=== PATIENT | female | born 1990 | race Caucasian/White ===

== ENCOUNTER 2019-06-02 18:40 | Emergency (ER) | payer OTHER ==
[2019-06-02 19:23] VITALS: TEMP 98.3; BMI 20.9
[2019-06-02 20:48] LABS: BASO % 0.4 % (0-2.0); EOS % 2.7 % (0-4.5); HEMATOCRIT 42.4 % (32.4-45.2); HEMOGLOBIN 14.1 GM/dL (10.7-15.3); LYMPH % 54.9 % (8-40); MCH 29.6 pg (25.7-33.7); MCHC 33.3 g/dl (32.0-36.0); MEAN CELL VOLUME 88.8 fl (80-96); MEAN PLT VOLUME 8.7 fl (7.5-11.1); MONO % 8.3 % (3.8-10.2); NEUT % 33.7 % (42.8-82.8); PLATELET COUNT 299 K/MM3 (134-434); RBC 4.78 M/mm3 (3.60-5.2); RDW 12.9 % (11.6-15.6); WHITE BLOOD COUNT 4.1 K/mm3 (4.0-10.0)
[2019-06-02 21:09] LABS: ALBUMIN 3.7 g/dl (3.4-5.0); BILIRUBIN,TOTAL 0.6 mg/dL (0.2-1); BLOOD UREA NITROGEN 9.8 mg/dL (7-18); CALCIUM 8.5 mg/dL (8.5-10.1); CREATININE 0.8 mg/dL (0.55-1.3); POTASSIUM 4.2 mmol/L (3.5-5.1); TOT PROT 7.8 g/dl (6.4-8.2)
--- NOTE | 2019-06-02 23:59 | PDOC ---
Documentation entered by Leesa Wesley SCRIBE, acting as scribe for Patricia Cat MD. Patricia Cat MD: This documentation has been prepared by the Lupillo varma Nirvannie, SCRIBE, under my direction and personally reviewed by me in its entirety. I confirm that the documentation accurately reflects all work, treatment, procedures, and medical decision making performed by me. History of Present Illness - General Chief Complaint: Shortness of Breath Stated Complaint: SOB History Source: Patient Exam Limitations: No Limitations - History of Present Illness Initial Comments: 06/02/19 22:07 The patient is a 28 year old female, with no significant past medical history, who presents to the emergency department with 2 days of generalized weakness, cough, chest pain, and shortness of breath. As per patient, her symptoms initially onset yesterday evening and persisted throughout the day, prompting her arrival to the ED. 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 Per patient her itinerary is as followed: She notes traveling last week from [facility] to [facility] and returned home. On Monday (05/26) she traveled from [facility] to [facility] where she was stationed for 2 days. She then traveled on (05/29) to [place] and back to [place] yesterday (05/31). She denies recent fevers, chills, headache or dizziness. She denies recent nausea, vomit, diarrhea or constipation. She denies recent dysuria, frequency, urgency or hematuria. Allergies: NKDA Primary Care Physician: Dr. Judd Past History - Past Medical History Allergies/Adverse Reactions: Allergies Allergy/AdvReac Type Severity Reaction Status Date / Time No Known Allergies Allergy Verified 06/02/19 19:22 Home Medications: Ambulatory Orders Unobtainable 06/29/15 - Immunization History Td Vaccination: Yes Immunization Up to Date: Yes - Psycho Social/Smoking Cessation Hx Smoking Status: No Smoking History: Never smoked Have you smoked in the past 12 months: No Number of Cigarettes Smoked Daily: 0 Hx Alcohol Use: No Drug/Substance Use Hx: No Review of Systems - Review of Systems Able to Perform ROS?: Yes Comments:: 03/08/20 22:07 CONSTITUTIONAL: Present: Generalized weakness. Absent: fever, no chills EYES: Absent: visual changes ENT: Absent: ear pain, no sore throat CARDIOVASCULAR: Present: Chest pain. Absent: no palpitations RESPIRATORY: Present: cough, SOB GI: Absent: abdominal pain, no nausea, no vomiting, no constipation, no diarrhea GENITOURINARY: Absent: dysuria, no frequency, no hematuria MUSKULOSKELETAL: Absent: back pain, no arthralgia, no myalgia SKIN: Absent: rash NEURO: Absent: headache All Other Systems: Reviewed and Negative *Physical Exam - Physical Exam 06/02/19 22:07 GENERAL: Awake and alert. Well developed, well nourished 28 year old. No acute distress. HEENT: Normocephalic, atraumatic. PERRLA, EOMI. No conjunctival pallor. Sclera are non- icteric. Moist mucous membranes. Oropharynx is clear. NECK: Supple. Full ROM. No JVD. Carotid pulses 2+ and symmetric, without bruits. No thyromegaly. No lymphadenopathy. CARDIOVASCULAR: Regular rate and rhythm. No murmurs, rubs, or gallops. Distal pulses are 2+ and symmetric. PULMONARY: No evidence of respiratory distress. Lungs clear to auscultation bilaterally. No wheezing, rales or rhonchi. ABDOMINAL: Soft. Non-tender. Non-distended. No rebound or guarding. No organomegaly. Normoactive bowel sounds. MUSCULOSKELETAL Normal range of motion at all joints. No bony deformities or tenderness. No CVA tenderness. EXTREMITIES: No cyanosis. No clubbing. No edema. No calf tenderness. SKIN: Warm and dry. Normal capillary refill. No rashes. No jaundice. NEUROLOGICAL: Alert, awake, appropriate. Cranial nerves 2-12 intact. No deficits to light touch and temperature in face, upper extremities and lower extremities. No motor deficits in the in face, upper extremities and lower extremities. Normal speech. PSYCHIATRIC: Cooperative. Good eye contact. Appropriate mood and affect. ED Treatment Course - LABORATORY CBC & Chemistry Diagram: 06/02/19 20:00 06/02/19 20:00 Medical Decision Making - Medical Decision Making 06/02/19 20:55 Call placed to [facility], awaiting call back. 21:03 Call returned from the [facility] technology administrator Lupillo, made aware he will text the correctional program officer doctor and call back. 21:41 Call returned from [facility] correctional program officer doctor, case was discussed with Dr. Rubio, given a phone number to further follow up with however phone line is not a 24 hour hotline. Call placed to [facility] and message left, awaiting call back on further steps to proceed. 22:39 I called the [facility] number again to try to speak to Dr. Rubio again to see if she approved sending this patient home and what we can do with viral samples we took 22:48 Call returned from [facility] advised to keep samples overnight at the in house lab and they will pick it up in the morning. I spoke with technology administrator Endy Minor [phone] and he was given all the demographics on this pt. He said he was in contact with Dr Rubio and the pt could go home but must remain in Quarantine at home along with her family members 06/02/19 23:55 06/03/19 01:21 06/03/19 01:28 During the patient's stay she has never been hypoxic CTA of the chest the pulmonary arteries are under opacified there is no pulmonary embolus in the major central pulmonary arteries The more distal pulmonary arteries cannot be adequately evaluated due to under opacification There is no thoracic aortic aneurysm or dissection there is no pulmonary infiltrates no pleural effusions no pneumothorax no pneumomediastinum Trace pericardial effusion visualized No gross pericardial effusions Cannot exclude some underlying lymph nodes Osseous structures are intact 06/03/19 01:34 We explained to the patient that she must go home and stay in self quarantine until she gets further instructions ffom the [facility] We explained to the patient that her family members she lives with should also stay in quarantine at home I explained to her that we call [facility] [phone] and spoke with technology administrator who said that the viral samples we took tonight would be picked up by the [facility] and tested. Discharge - Discharge Information Problems reviewed: Yes Clinical Impression/Diagnosis: Malaise and fatigue, Cough, Shortness of breath, Atypical chest pain Condition: Good Disposition: HOME - Admission No - Follow up/Referral Referrals: Erma Judd MD [Primary Care Provider] - - Patient Discharge Instructions Patient Printed Discharge Instructions: DI for Cough -- Adult, DI for Shortness of Breath Additional Instructions: We have taken viral swabs of your pharynx and nose to be tested for COVID 19 . These samples will be tested by the Department of Health .Contact number . You are being instructed to return home and remain in quarantine at home along with your family members until [facility] instructs you further. - Post Discharge Activity
[2019-06-03] MEDS ORDERED: SODIUM CHLORIDE 1,000 ML IV STA (01:47)
[2019-06-03 04:30] VITALS: BP 122/78; PULSE 86
--- NOTE | 2019-06-03 09:32 | EKG ---
Test Reason : Blood Pressure : / mmHG Vent. Rate : 088 BPM Atrial Rate : 088 BPM P-R Int : 146 ms QRS Dur : 080 ms QT Int : 380 ms P-R-T Axes : 058 065 042 degrees QTc Int : 459 ms POOR DATA QUALITY, INTERPRETATION MAY BE ADVERSELY AFFECTED NORMAL SINUS RHYTHM NORMAL ECG WHEN COMPARED WITH ECG OF 16-JUL-2010 13:04, T WAVE INVERSION NO LONGER EVIDENT IN ANTERIOR LEADS Confirmed by Meg Roque ([id number]) on 06/03/2019 9:31:54 AM Referred By: Confirmed By:Meg Roque
== END 2019-06-03 02:25 | disposition home or self-care (01) ==
LOC: JER 18:40
PROC: 3E0337Z Introduction of Electrolytic and Water Balance Substance into Peripheral Vein, Percutaneous Approach (ICD-10-PCS; principal; 2019-06-02)
DX: R07.89 Other chest pain (principal); R05 Cough; R06.02 Shortness of breath; R53.83 Other fatigue
CPT/HCPCS: 36415; 71045-TC-FY; 71275-TC; 80053; 82550; 84484; 84703; 85025; 85379; 87633; 87804; 93005; 93010; 99285-25; J7030; Q9967

== ENCOUNTER 2020-08-05 01:54 | Inpatient (IN) | payer OTHER ==
[2020-08-05] MEDS ORDERED: PROMETHAZINE HCL 25 MG/1 ML VIAL IVPB ONE (03:45)
[2020-08-05] MEDS ORDERED: ELECTROLYTE-148 SOLN 1,000 ML IV SCH (03:45)
[2020-08-05] MEDS ORDERED: BUTORPHANOL TARTRATE 1 MG/ML VIAL IVPB ONE (03:45)
[2020-08-05 03:57] LABS: BASO % 0.5 % (0-2.0); EOS % 0.3 % (0-4.5); HEMATOCRIT 31.3 % (32.4-45.2); HEMOGLOBIN 10.6 GM/dL (10.7-15.3); LYMPH % 15.5 % (8-40); MCH 29.6 pg (25.7-33.7); MEAN CELL VOLUME 87.2 fl (80-96); MEAN PLT VOLUME 9.6 fl (7.5-11.1); MONO % 7.9 % (3.8-10.2); NEUT % 75.8 % (42.8-82.8); PLATELET COUNT 276 K/MM3 (134-434); RBC 3.59 M/mm3 (3.60-5.2); RDW 15.5 % (11.6-15.6); WHITE BLOOD COUNT 12.2 K/mm3 (4.0-10.0)
[2020-08-05] MEDS ORDERED: BUTORPHANOL TARTRATE 1 MG/ML VIAL ONE ×2 (04:04)
[2020-08-05] MEDS ORDERED: PROMETHAZINE HCL 25 MG/1 ML VIAL ONE (04:05)
[2020-08-05 04:09] LABS: INR 0.9 (0.83-1.09); PROTHROMBIN TIME (PATIENT) 10.9 SEC (9.7-13.0)
[2020-08-05 04:18] LABS: CALCIUM 8.8 mg/dL (8.5-10.1)
[2020-08-05 04:19] LABS: BLOOD UREA NITROGEN 9.2 mg/dL (7-18)
[2020-08-05 04:22] LABS: CREATININE 0.7 mg/dL (0.55-1.3)
[2020-08-05 04:31] VITALS: BMI 28.6
[2020-08-05 05:46] LABS: HIV INTERPRETATION NEGATIVE (NEGATIVE)
[2020-08-05] MEDS ORDERED: FENTANYL/BUPIVACAINE/NS/PF - PCEA - 50 ML DISP.SYRIN EP ONE ×2 (08:26→11:24)
[2020-08-05] MEDS ORDERED: NALOXONE HCL 0.4 MG/ML VIAL IVPUSH PRN (09:23)
[2020-08-05] MEDS ORDERED: FENTANYL/BUPIVACAINE/NS/PF - PCEA - 50 ML DISP.SYRIN EP SCH (09:30)
[2020-08-05] MEDS ORDERED: PCA PUMP NR ONE (11:24)
[2020-08-05] MEDS ORDERED: OXYTOCIN 20 UNITS in 0.9% NS 20 UNIT/1,000 ML INFUS.BAG IV ONE (12:40)
[2020-08-05] MEDS ORDERED: LIDOCAINE HCL 1% PRESERVATIVE FREE - 30ML VIAL ONE (12:41)
[2020-08-05] MEDS ORDERED: OXYTOCIN 30 UNITS in 0.9% NS 30 UNIT/500 ML INFUS.BAG IVPB ONE (12:56)
[2020-08-05] MEDS ORDERED: WITCH HAZEL 50% (TUCKS) 40 PAD/JAR PAD TP PRN (13:34)
[2020-08-05] MEDS ORDERED: BENZOCAINE 28 GM HEMORRHOIDAL OINTMENT TP PRN (13:34)
[2020-08-05] MEDS ORDERED: BENZOCAINE 20% 57 GM BOTTLE TP PRN (13:34)
[2020-08-05] MEDS ORDERED: METHYLERGONOVINE MALEATE 0.2 MG/1 ML AMP IM PRN (13:34)
[2020-08-05] MEDS ORDERED: BISACODYL 10 MG SUPP.RECT RC PRN (13:34)
[2020-08-05] MEDS ORDERED: OXYTOCIN 20 UNITS in 0.9% NS 20 UNIT/1,000 ML INFUS.BAG IV SCH (13:45)
[2020-08-05 14:09] LABS: CORD BASE EXCESS -6.9 mmol/L (0-2); CORD HCO3 19.8 mmHg (20-29); CORD PCO2 43.7 mmHg (30-78); CORD pH 7.274 (7.14-7.44)
[2020-08-05 14:13] LABS: CORD HCO3 21.6 mmHg (20-29); CORD PCO2 54.5 mmHg (30-78); CORD pH 7.216 (7.14-7.44)
[2020-08-06 08:40] LABS: BASO % 0.2 % (0-2.0); EOS % 0.3 % (0-4.5); HEMATOCRIT 23.1 % (32.4-45.2); HEMOGLOBIN 7.9 GM/dL (10.7-15.3); LYMPH % 14.3 % (8-40); MCH 29.4 pg (25.7-33.7); MCHC 34.3 g/dl (32.0-36.0); MEAN CELL VOLUME 85.7 fl (80-96); MEAN PLT VOLUME 8.8 fl (7.5-11.1); MONO % 6.8 % (3.8-10.2); NEUT % 78.4 % (42.8-82.8); PLATELET COUNT 239 K/MM3 (134-434); RBC 2.69 M/mm3 (3.60-5.2); RDW 15.2 % (11.6-15.6); WHITE BLOOD COUNT 17.6 K/mm3 (4.0-10.0)
[2020-08-06] MEDS: PRENATAL VITAMINS W/ FOLIC ACID TABLET (FP) PO SCH (10:53)
[2020-08-06] MEDS ORDERED: SENNOSIDES/DOCUSATE COMBO (SENNA PLUS) TABLET (UD) PO PRN (22:00)
[2020-08-07] MEDS: ACETAMINOPHEN 325 MG TABLET (FP) PO PRN ×2 (00:28→09:28)
[2020-08-07] MEDS: IBUPROFEN 600 MG TABLET (FP) PO PRN ×2 (00:29→09:29)
[2020-08-07] MEDS: PRENATAL VITAMINS W/ FOLIC ACID TABLET (FP) PO SCH (09:30)
[2020-08-07 10:27] VITALS: BP 107/62; PULSE 87; TEMP 97.8
== END 2020-08-07 16:50 | disposition home or self-care (01) | DRG 560 ==
LOC: JDEL 01:54 → JLDR 03:07 → J3W 14:45
PROVIDERS: ADMIT Obstetrics & Gynecology; ATTEND Obstetrics & Gynecology
PROC: 10E0XZZ Delivery of Products of Conception, External Approach (ICD-10-PCS; principal; 2020-08-05)
PROC: 0HQ9XZZ Repair Perineum Skin, External Approach (ICD-10-PCS; 2020-08-05)
DX: O70.0 First degree perineal laceration during delivery (principal); Z37.0 Single live birth; Z86.16 Personal history of COVID-19; O90.81 Anemia of the puerperium; D64.9 Anemia, unspecified; Z3A.39 39 weeks gestation of pregnancy
CPT/HCPCS: 36415; 36600; 59025; 59409; 80048; 82803; 85025; 85610; 85730; 86780; 86850; 86900; 86901; 87389; C9803; U0003; U0005

== ENCOUNTER 2020-09-12 21:34 | Emergency (ER) | payer OTHER ==
[2020-09-12] MEDS ORDERED: DEXAMETHASONE SOD PHOSPHATE 10 MG/1 ML VIAL IVPUSH ONE (21:42)
[2020-09-12] MEDS ORDERED: EPINEPHrine 1:1,000 0.3 MG/0.3 ML SYR IM ONE (21:42)
[2020-09-12] MEDS ORDERED: LACTATED RINGERS SOLUTION 1000 ML INFUS.BAG IV ONE (21:42)
[2020-09-12] MEDS ORDERED: FAMOTIDINE 20 MG/50 ML IVPB 20 MG/50 ML MG IVPB ONE ×2 (21:42→21:47)
[2020-09-12] MEDS ORDERED: EPINEPHrine/PF 1 MG/1 ML (1:1,000) AMPULE ONE ×2 (21:43→21:45)
[2020-09-12] MEDS ORDERED: DEXAMETHASONE SOD PHOSPHATE 10 MG/1 ML VIAL ONE (21:44)
[2020-09-12] MEDS ORDERED: ALBUTEROL SO4 2.5/IPRATROPIUM 0.5 INH SOL 3 ML VIAL.NEB. NEB ONE ×2 (21:49)
[2020-09-12 22:08] LABS: BASO % 0.2 % (0-2.0); HEMOGLOBIN 11.9 GM/dL (10.7-15.3); LYMPH % 75.3 % (8-40); MCH 28.1 pg (25.7-33.7); MCHC 33.1 g/dl (32.0-36.0); MEAN CELL VOLUME 84.9 fl (80-96); MEAN PLT VOLUME 7.2 fl (7.5-11.1); MONO % 4.2 % (3.8-10.2); NEUT % 19.3 % (42.8-82.8); PLATELET COUNT 295 10^3/uL (134-434); RBC 4.25 M/mm3 (3.60-5.2); RDW 16.5 % (11.6-15.6); WHITE BLOOD COUNT 8.5 K/mm3 (4.0-10.0)
[2020-09-12 22:10] VITALS: BMI 25.0
[2020-09-12 22:27] VITALS: TEMP 98.4
[2020-09-12 22:29] LABS: CALCIUM 8.5 mg/dL (8.5-10.1)
[2020-09-12 22:30] LABS: ALBUMIN 3.6 g/dl (3.4-5.0)
[2020-09-12 22:33] LABS: CREATININE 0.9 mg/dL (0.55-1.3)
[2020-09-12 22:34] LABS: BILIRUBIN,TOTAL 0.2 mg/dL (0.2-1); TOT PROT 7.6 g/dl (6.4-8.2)
[2020-09-12 22:49] LABS: ANISOCYTOSIS 2+; MACROCYTOSIS 0; OVALOCYTE 1+; PLATELET ESTIMATE NORMAL
[2020-09-12 23:01] LABS: BLOOD UREA NITROGEN 11.9 mg/dL (7-18)
[2020-09-13 01:30] VITALS: BP 107/77; PULSE 80
== END 2020-09-13 01:54 | disposition home or self-care (01) ==
LOC: JER 21:34
PROC: 3E033NZ Introduction of Analgesics, Hypnotics, Sedatives into Peripheral Vein, Percutaneous Approach (ICD-10-PCS; principal; 2020-09-12)
PROC: 3E033GC Introduction of Other Therapeutic Substance into Peripheral Vein, Percutaneous Approach (ICD-10-PCS; 2020-09-12)
PROC: 3E023NZ Introduction of Analgesics, Hypnotics, Sedatives into Muscle, Percutaneous Approach (ICD-10-PCS; 2020-09-12)
PROC: 3E0F7GC Introduction of Other Therapeutic Substance into Respiratory Tract, Via Natural or Artificial Opening (ICD-10-PCS; 2020-09-12)
DX: T78.40XA Allergy, unspecified, initial encounter (principal)
CPT/HCPCS: 36415; 71045-TC-FY; 80053; 85025; 93005; 93010; 99285-25; J1100